=== PATIENT | female | born 1970 | race Two or more races ===

== ENCOUNTER 2018-08-04 15:15 | Emergency (ER) ==
[~2018-08-04] VITALS: Ht 162.6 cm; Wt 54.4 kg
[2018-08-04 15:15] VITALS: BP 150/92
[2018-08-04] MEDS ORDERED: IBUPROFEN 600 MG TABLET PO ONE ×2 (16:50→17:00)
[2018-08-04] MEDS ORDERED: ALBUTEROL FS 2.5 MG/3 ML VIAL.NEB NEB ONE (17:00)
[2018-08-04] MEDS ORDERED: IPRATROPIUM NEB FS 0.5 MG/2.5 ML AMPUL.NEB NEB ONE (17:00)
[2018-08-04] MEDS ORDERED: IPRATROPIUM NEB FS 0.5 MG/2.5 ML AMPUL.NEB ONE (17:10)
[2018-08-04] MEDS ORDERED: ALBUTEROL FS 2.5 MG/3 ML VIAL.NEB ONE (17:10)
== END 2018-08-04 18:05 | disposition home or self-care (01) ==
LOC: ER 15:25
DX: S20.219A Contusion of unspecified front wall of thorax, initial encounter (principal); T22.111A Burn of first degree of right forearm, initial encounter; J98.01 Acute bronchospasm; Z60.2 Problems related to living alone; W22.12XA Striking against or struck by front passenger side automobile airbag, initial encounter; V49.49XA Driver injured in collision with other motor vehicles in traffic accident, initial encounter; Y93.89 Activity, other specified; Y92.413 State road as the place of occurrence of the external cause; Y99.8 Other external cause status
CPT/HCPCS: 71045-TC